=== PATIENT | male | born 1960 | race Caucasian/White ===

== ENCOUNTER 2019-09-23 07:03 | Emergency (ER) | payer BC ==
[2019-09-23] MEDS ORDERED: Lisinopril 10 MG Tab PO ONE (07:55)
--- NOTE | 2019-09-23 07:57 | EDM.PDOC ---
ED HPI GENERAL MEDICAL PROBLEM - General Chief Complaint: Chest Pain Stated Complaint: CHEST PAIN Time Seen by Provider: 09/23/19 07:36 Source of Information: Reports: Patient History Limitations: Reports: No Limitations - History of Present Illness INITIAL COMMENTS - FREE TEXT/NARRATIVE: Mr. Leroy is a pleasant 59 year old man with a past medical history significant for hypertension, untreated for more than 1 year, who now presents the ED stating that he woke up with a stabbing pain felt in his left lower pectoralis muscle - he points with one finger to the location - around 4:30 this morning. He states that the sensation is a pain, not a discomfort, and that it is intermittent, lasting only a moment, but when present, it takes his breath away. He has not identified any modifiers. No associated nausea, diaphoresis, or sense of impending doom, and he is not diaphoretic when he is not experiencing the chest pain. No prior similar symptoms. The patient also reports a bifrontal headache, throbbing in character, that also began around 4:30 this morning. Here in the ED, the patient's initial BP is found to be elevated at 234/92, although without treatment, it has since come down to 204/95. He is otherwise hemodynamically stable, afebrile, saturating at 99% on room air. The patient denies recent fever, chills, sore throat, ear pain, nasal or sinus congestion, cough, dyspnea, palpitations, nausea, vomiting, constipation, diarrhea, abdominal pain, urinary symptoms, recent weight gain or weight loss, recent bloody bowel movements or black bowel movements, recent joint aches, or rashes. The patient does not have a PCP. Chest Pain Score (Numeric/FACES): 5 Headache Pain Score (Numeric/FACES): 3 - Related Data Allergies Allergy/AdvReac Type Severity Reaction Status Date / Time No Known Allergies Allergy Verified 09/23/19 07:11 Home Meds: Home Meds lisinopriL [Lisinopril] 1 tab PO QPM #14 tablet 09/23/19 [Rx] Past Medical History HEENT History: Reports: Impaired Vision (wears glasses) Cardiovascular History: Reports: Hypertension (untreated) - Infectious Disease History Infectious Disease History: Reports: Chicken Pox, Measles, Mumps - Past Surgical History GI Surgical History: Reports: Hernia, Inguinal (as an ) Musculoskeletal Surgical History: Reports: Other (See Below) (Right thumb pinning) Social & Family History - Tobacco Use Smoking Status *Q: Current Every Day Smoker Years of Tobacco use: 49 Packs/Tins Daily: 0.5 Packs/Tins Daily Comment: Down from 2 ppd - Caffeine Use Caffeine Use: Reports: None - Alcohol Use Alcohol Use History: Yes Days Per Week of Alcohol Use: 7 Number of Drinks Per Day: 2 Total Drinks Per Week: 14 Alcohol Use Frequency: Daily - Recreational Drug Use Recreational Drug Use: No - Living Situation & Occupation Living situation: Reports: , with Spouse Occupation: Employed ([employer]) ED ROS GENERAL - Review of Systems Review Of Systems: Comprehensive ROS is negative, except as noted in HPI. ED EXAM, GENERAL - Physical Exam Exam: See Below Exam Limited By: No Limitations General Appearance: Alert, WD/WN, No Apparent Distress Eye Exam: Bilateral Eye: EOMI, Normal Inspection Ears: Normal External Exam, Hearing Grossly Normal Nose: Normal Inspection Throat/Mouth: Normal Inspection, Normal Lips, Normal Voice, No Airway Compromise Head: Atraumatic, Normocephalic Neck: Normal Inspection, Full Range of Motion Respiratory/Chest: No Respiratory Distress, Lungs Clear, Normal Breath Sounds, No Accessory Muscle Use, Chest Non-Tender Cardiovascular: Normal Peripheral Pulses, Regular Rate, Rhythm, No Edema, No Gallop, No JVD, No Murmur, No Rub Peripheral Pulses: 4+: Radial (L), Radial (R) GI/Abdominal: Normal Bowel Sounds, Soft, Non-Tender, No Organomegaly, No Distention, No Abnormal Bruit, No Mass (Male) Exam: Deferred Rectal (Males) Exam: Deferred Back Exam: Normal Inspection, Full Range of Motion, NT Extremities: Normal Inspection, Normal Range of Motion, No Pedal Edema, Normal Capillary Refill Neurological: Alert, Oriented, Normal Cognition, No Motor/Sensory Deficits Psychiatric: Normal Affect Skin Exam: Warm, Dry, Intact, Normal Color, No Rash EKG INTERPRETATION EKG Date: 09/23/19 Time: 07:23 Rhythm: NSR Rate (Beats/Min): 61 [place]: Normal P-Wave: Present QRS: Normal ST-T: Depressed (Slight ST depression in the anterolateral leads, but no T wave inversions to suggest ischemia) QT: Normal Comparison: NA - No Prior EKG Course - Vital Signs Last Recorded V/S: Last Vital Signs Temp 36.7 C 09/23/19 11:10 Pulse 62 09/23/19 11:10 Resp 18 09/23/19 11:10 BP 172/85 H 09/23/19 11:10 Pulse Ox 97 09/23/19 11:10 - Orders/Labs/Meds Orders: Active Orders 24 hr Category Date Time Status EKG Documentation Completion [RC] ASDIRECTED Care 09/23/19 07:27 Active EKG 12 Lead [EK] Stat Ther 09/23/19 07:27 Ordered Labs: Laboratory Tests 09/23/19 09/23/19 09/23/19 Range/Units 07:25 07:25 07:25 WBC 5.94 (4.23-9.07) K/mm3 RBC 5.32 (4.63-6.08) M/mm3 Hgb 15.5 (13.7-17.5) gm/dl Hct 45.4 (40.1-51.0) % MCV 85.3 (79.0-92.2) fl MCH 29.1 (25.7-32.2) pg MCHC 34.1 (32.2-35.5) g/dl RDW Std Deviation 39.6 (35.1-43.9) fL Plt Count 274 (163-337) K/mm3 MPV 9.7 (9.4-12.3) fl Neutrophils % (Manual) 67 H (40-60) % Band Neutrophils % 0 (0-10) % Lymphocytes % (Manual) 27 (20-40) % Atypical Lymphs % 0 % Monocytes % (Manual) 3 (2-10) % Eosinophils % (Manual) 2 (0.8-7.0) % Basophils % (Manual) 1 (0.2-1.2) Platelet Estimate Adequate Plt Morphology Comment Normal RBC Morph Comment Normal PT 11.1 (9.7-12.0) SECONDS INR 1.02 APTT 27 (22-31) SECONDS D-Dimer, Quantitative 0.46 (0.19-0.50) mg/L Sodium 141 (136-145) mEq/L Potassium 3.4 L (3.5-5.1) mEq/L Chloride 102 (98-107) mEq/L Carbon Dioxide 29 (21-32) mEq/L Anion Gap 13.4 (5-15) BUN 8 (7-18) mg/dL Creatinine 1.1 (0.7-1.3) mg/dL Est Cr Clr Drug Dosing 79.36 mL/min Estimated GFR (MDRD) > 60 (>60) mL/min BUN/Creatinine Ratio 7.3 L (14-18) Glucose 126 H (74-106) mg/dL Calcium 9.1 (8.5-10.1) mg/dL Total Bilirubin 0.8 (0.2-1.0) mg/dL AST 21 (15-37) U/L ALT 23 (16-63) U/L Alkaline Phosphatase 91 (46-116) U/L Troponin I 0.048 (0.00-0.056) ng/mL NT-Pro-B Natriuret Pep (0-125) pg/mL Total Protein 7.3 (6.4-8.2) g/dl Albumin 3.6 (3.4-5.0) g/dl Globulin 3.7 gm/dL Albumin/Globulin Ratio 1.0 (1-2) 09/23/19 09/23/19 Range/Units 07:25 09:49 WBC (4.23-9.07) K/mm3 RBC (4.63-6.08) M/mm3 Hgb (13.7-17.5) gm/dl Hct (40.1-51.0) % MCV (79.0-92.2) fl MCH (25.7-32.2) pg MCHC (32.2-35.5) g/dl RDW Std Deviation (35.1-43.9) fL Plt Count (163-337) K/mm3 MPV (9.4-12.3) fl Neutrophils % (Manual) (40-60) % Band Neutrophils % (0-10) % Lymphocytes % (Manual) (20-40) % Atypical Lymphs % % Monocytes % (Manual) (2-10) % Eosinophils % (Manual) (0.8-7.0) % Basophils % (Manual) (0.2-1.2) Platelet Estimate Plt Morphology Comment RBC Morph Comment PT (9.7-12.0) SECONDS INR APTT (22-31) SECONDS D-Dimer, Quantitative (0.19-0.50) mg/L Sodium (136-145) mEq/L Potassium (3.5-5.1) mEq/L Chloride (98-107) mEq/L Carbon Dioxide (21-32) mEq/L Anion Gap (5-15) BUN (7-18) mg/dL Creatinine (0.7-1.3) mg/dL Est Cr Clr Drug Dosing mL/min Estimated GFR (MDRD) (>60) mL/min BUN/Creatinine Ratio (14-18) Glucose (74-106) mg/dL Calcium (8.5-10.1) mg/dL Total Bilirubin (0.2-1.0) mg/dL AST (15-37) U/L ALT (16-63) U/L Alkaline Phosphatase (46-116) U/L Troponin I 0.048 (0.00-0.056) ng/mL NT-Pro-B Natriuret Pep 356 H (0-125) pg/mL Total Protein (6.4-8.2) g/dl Albumin (3.4-5.0) g/dl Globulin gm/dL Albumin/Globulin Ratio (1-2) Meds: Medications Discontinued Medications Generic Name Dose Route Start Last Admin Trade Name Freq PRN Reason Stop Dose Admin Lisinopril 10 mg 09/23/19 07:55 09/23/19 08:02 Prinivil PO 09/23/19 07:56 10 mg ONETIME ONE Administration - Re-Assessments/Exams Free Text/Narrative Re-Assessment/Exam: 09/23/19 07:53 As above, the patient has intermittent stabbing left sided chest pain. It is not reproducible on palpation, but it is noncardiac in its presentation. We have ordered a work-up that includes blood work, a chest x-ray, and an ECG. Additionally, due to the patient's elevated BP, I will start the patient on lisinopril, with the intention that he follow-up with a PCP to continue his treatment. 09/23/19 08:26 Two-view chest radiograph reviewed. The cardiac silhouette is within normal limits. No pulmonary vascular congestion. Pleural effusion. There is a small area of opacity noted in the posterior sulcus, most likely due to an infiltrate versus atelectasis versus pleural thickening. No pneumothorax. There is hyperinflation and bilateral diaphragmatic flattening, consistent with COPD. Formal read per the Radiologist pending. 09/23/19 09:16 The patient's CBC is unremarkable. His CMP is remarkable for a potassium slightly depressed at 3.4, and a blood glucose slightly elevated at 126, with the remainder of his CMP being unremarkable. His troponin is within normal limits at 0.048. His BNP is mildly elevated at 356. His D-dimer is within normal limits at 0.46. His coags are within normal limits. Although the patient's presentation is certainly noncardiac, due to his significantly elevated BP and the slight ST depressions in the anterolateral leads, I feel it would be prudent to completely rule out an MS, therefore I have ordered a second troponin. 09/23/19 10:51 The patient's repeat troponin is unchanged at 0.048. 09/23/19 10:56 Test results discussed with the patient. Today's work-up is unremarkable. I suspect that his chest pain is musculoskeletal in etiology, and I am recommending that he take [id number] ibuprofen as needed for discomfort. With respect to his hypertension, his BP is now down to 158/74, which is actually lower than I would have liked. I will submit a prescription for lisinopril 10 mg daily, but most importantly, I would like the patient to follow -up in the clinic this week. Departure - Departure Time of Disposition: 10:57 Disposition: Home, Self-Care 01 Condition: Good Clinical Impression: Musculoskeletal chest pain, Hypertension Prescriptions: lisinopriL [Lisinopril] 1 tab PO QPM #14 tablet Instructions: Chest Wall Pain, [id number], Hypertension, Adult, [id number] Referrals: Julianna Gutierrez NP [Nurse Practitioner] - Forms: ED Department Discharge Additional Instructions: You were seen in the emergency room after waking up with stabbing left-sided chest pain. In the ER, your initial blood pressure was found to be substantially elevated at 234/92. Work-up in the ER included blood work, a chest x-ray, and an ECG. Your entire work-up was unremarkable. You have not suffered a heart attack. You do not have a blood clot in your lungs. You do not have pneumonia. You do not have a collapsed lung. Based on your history, physical exam, and ER tests, your chest pain was most likely musculoskeletal in etiology. We recommend that you take [id number] ibuprofen as needed for discomfort. You have been started on the blood pressure medicine lisinopril, and a prescription for lisinopril has been sent to the [facility] located in the [employer] [facility]. Take 1 tablet of lisinopril every evening, starting tomorrow evening, 09/24/2019, as prescribed. It is very important that you establish a primary care provider. Please follow- up with Julianna Gutierrez NP, or any one of the other providers in the clinic, this week. If any other problems, please do not hesitate to return to the ER. Sepsis Event Note - Evaluation Sepsis Screening Result: No Definite Risk - Focused Exam Vital Signs: Vital Signs Temp Pulse Resp BP BP Pulse Ox 09/23/19 11:10 36.7 C 62 18 172/85 H 97 09/23/19 11:00 60 16 164/80 H 96 09/23/19 08:02 207/90 H 09/23/19 07:05 36.9 C 63 12 234/92 H 99 Date Exam was Performed: 09/23/19 Time Exam was Performed: 11:46 - My Orders Last 24 Hours: My Active Orders 09/23/19 07:27 EKG Documentation Completion [RC] ASDIRECTED EKG 12 Lead [EK] Stat - Assessment/Plan Last 24 Hours: My Active Orders 09/23/19 07:27 EKG Documentation Completion [RC] ASDIRECTED EKG 12 Lead [EK] Stat
--- NOTE | 2019-09-23 08:50 | CR ---
Chest: 2 views of the chest were obtained. Comparison: No prior chest imaging. Heart size and mediastinum are normal. Lungs are clear. Pleural thickening is seen within the posterior costophrenic angle. Bony structures shows disc calcification within the lower thoracic disc. Mild scattered endplate osteophytes are seen. Impression: 1. Pleural thickening within the posterior costophrenic angle. This presumably is chronic but no previous study is available to confirm. Chest CT could be considered to make sure this has a benign appearance by that modality. 2. Nothing acute is otherwise seen on 2 view chest x-ray. Diagnostic code #3 This report was dictated in MDT
== END 2019-09-23 11:20 | disposition home or self-care (01) ==
LOC: JD.ED 07:03
DX: I10 Essential (primary) hypertension (principal); F17.210 Nicotine dependence, cigarettes, uncomplicated; E87.6 Hypokalemia; Z79.899 Other long term (current) drug therapy
CPT/HCPCS: 36415; 71046; 80053; 83880; 84484; 85007; 85027; 85379; 85610; 85730; 93005; 99285; A9270; 93010; 99283